=== PATIENT | female | born 1955 | race Caucasian/White ===

== ENCOUNTER 2018-12-18 07:24 | Day surgery (SDC) | payer OTHER ==
[~2018-12-18] VITALS: Ht 157.5 cm; Wt 67.8 kg
[~2018-12-18 07:24] MED LIST: ASPIRIN; ATEN-51 PO; ATENOLOL
[2018-12-18 07:58] VITALS: Ht 157.5 cm; Wt 67.8 kg
[2018-12-18 08:16] VITALS: BP 115/61; PULSE 51; RESP 18
[2018-12-18] MEDS ORDERED: LIDOCAINE 4% SOLUTION 50 ML BTL ONE (08:49)
[2018-12-18] MEDS ORDERED: MIDAZOLAM 1 MG/ML 2 ML INJ ONE ×2 (09:28)
[2018-12-18] MEDS ORDERED: FENTAnyl 50 MCG/ML VIAL ONE (09:28)
[2018-12-18 09:32] VITALS: BP 107/60; PULSE 52; RESP 16
== END 2018-12-18 12:45 | disposition home or self-care (01) ==
LOC: GIL 07:24
PROVIDERS: ATTEND Internal Medicine Gastroenterology
DX: K22.70 Barrett's esophagus without dysplasia (principal); K29.50 Unspecified chronic gastritis without bleeding
CPT/HCPCS: 43239; 88305; 88312; 88313; J2250; J3010; Z7610